=== PATIENT | female | born 2000 | race African-American/Black ===

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

== ENCOUNTER 2024-03-30 18:19 | Emergency (ER) | payer OTHER ==
[2024-03-30 18:47] VITALS: BP 115/73; PULSE 82; RESP 20; TEMP 98.6; BMI 20.9
== END 2024-03-30 22:10 | disposition home or self-care (01) ==
LOC: JER 18:19
DX: O26.891 Other specified pregnancy related conditions, first trimester (principal); R10.13 Epigastric pain; Z3A.01 Less than 8 weeks gestation of pregnancy; Z03.79 Encounter for other suspected maternal and fetal conditions ruled out
CPT/HCPCS: 99283-25